=== PATIENT | female | born 1930 | race Caucasian/White ===

== ENCOUNTER 2018-10-12 20:55 | Inpatient (IN) | payer MEDICARE, OTHER ==
[2018-10-12 20:55] VITALS: BMI 24.0
--- NOTE | 2018-10-12 21:10 | ED PDOC ---
Arrival/HPI - General Time Seen by Provider: 10/12/18 20:56 Historian: Family, EMS EM Caveat: Altered Mental Status - Critical Care Critical Care Minutes: 30 minutes - History of Present Illness Narrative History of Present Illness (Text): 10/12/18 21:00 88 year old female, whose past medical history includes dementia, degenerative joint disease, Hypertension, Diabetes, and Hyperlipidemia, presents to the emergency department via EMS for evaluation of poor responsiveness at home. As per collateral history obtained by paramedics, patient was noted to be noncommunicative, generalized weakness with a noted gaze preference. Patient with a blood sugar in the field of 50 and was administered dextrose. Patient however is awake, but poorly responsive and noncommunicative. HPI and JOAQUÍN sage vivi due to patient's altered mental status. PMD: Dr. Nader Aguilar Past Medical History - Provider Review Nursing Documentation Reviewed: Yes - Infectious Disease Hx of Infectious Diseases: None - Cardiac Hx Cardiac Disorders: Yes Hx Hypertension: Yes - Pulmonary Hx Respiratory Disorders: No - Neurological Hx Neurological Disorder: Yes Hx Dementia: Yes - HEENT Hx HEENT Disorder: Yes Hx Cataracts: Yes - Renal Hx Renal Disorder: No - Endocrine/Metabolic Hx Diabetes Mellitus Type 2: Yes (niddm) - Hematological/Oncological Hx Blood Disorders: Yes Hx Shingles: Yes (2012) - Integumentary Hx Dermatological Disorder: No - Musculoskeletal/Rheumatological Hx Falls: Yes - Gastrointestinal Hx Gastrointestinal Disorders: Yes - Genitourinary/Gynecological Hx Genitourinary Disorders: Yes Hx Incontinence: Yes Hx Urinary Tract Infection: Yes - Psychiatric Hx Psychophysiologic Disorder: Yes Hx Anxiety: Yes Hx Depression: Yes Hx Substance Use: No - Surgical History Hx Cholecystectomy: Yes Hx Hysterectomy: Yes Other/Comment: PIGTAIL STENT - Anesthesia Hx Anesthesia: Yes Hx Anesthesia Reactions: No Hx Malignant Hyperthermia: No Family/Social History - Physician Review Nursing Documentation Reviewed: Yes Family/Social History: No Known Family HX Smoking Status: Unknown If Ever Smoked Hx Alcohol Use: No Hx Substance Use: No Allergies/Home Meds Allergies/Adverse Reactions: Allergies Penicillins Allergy (Verified 02/06/16 23:41) SWELLING Review of Systems - Physician Review All systems were reviewed & negative as marked: Yes - Review of Systems Systems not reviewed;Unavailable: Altered Mental Status Physical Exam Vital Signs Reviewed: Yes Temperature: Afebrile Blood Pressure: Hypotensive Pulse: Tachycardic Respiratory Rate: Normal Appearance: Positive for: Well-Appearing, Non-Toxic Pain Distress: None Mental Status: Positive for: other (awake, but noncommunicative) - Systems Exam Head: Present: Atraumatic, Normocephalic Pupils: Present: PERRL Extroacular Muscles: Present: Gaze Palsy Conjunctiva: Present: Normal Ears: Present: NORMAL TM Mouth: Present: Moist Mucous Membranes Pharnyx: Present: Normal Neck: Present: Normal Range of Motion Respiratory/Chest: Present: Clear to Auscultation, Good Air Exchange. No: Respiratory Distress, Accessory Muscle Use Cardiovascular: Present: Tachycardic. No: Murmurs Abdomen: No: Tenderness, Distention, Peritoneal Signs Back: Present: Normal Inspection Upper Extremity: Present: Normal Inspection. No: Cyanosis, Edema Lower Extremity: Present: Normal Inspection. No: Edema Neurological: Present: Other ((+)slight right gaze preference, right-sided and left-sided paresis, positive gag) Skin: Present: Warm, Dry, Normal Color. No: Rashes Psychiatric: Present: Alert (awake and noncommunicative) Medical Decision Making ED Course and Treatment: 10/12/18 21:00 Impression: 88 year old female presents for evaluation for poor responsiveness at home. As per civil engineering professor, patient noted to be noncommunicative, generalized weakness, and noted right gaze preference. PE shows patient to be awake and noncommunicative, with slight right eye gaze preference, right-sided and left-sided paresis, and positive gag. Plan: -- Labs -- ABG, VBG -- Head CT (code stroke) -- EKG -- Stroke Team consult -- Chest X-ray -- IV Fluids -- Blood Culture, Urine Culture -- Urinalysis -- Reassess and disposition Prior Visits: Notes and results from previous visits were reviewed. Progress Notes: 10/12/18 21:03 Code stroke called. EXAM: CT Head without Intravenous Contrast. Electronically signed on Oct 12, 2018 9:20:06 PM EST by: Boo Hook M.D. IMPRESSION: 1. There is generalized parenchymal atrophy noted as demonstrated by symmetrical dilatation of ventricles and sulci. 2. Chronic periventricular and subcortical microvascular disease is seen. 3. No acute intracranial pathology. 10/12/18 21:25 Called placed to Neurologist Dr. Gayle 10/12/18 21:26 CXR Impression: As read by me, no acute process. 10/12/18 21:32 EKG shows Sinus tachycardia at 125 BPM with septal infarct, anterior lateral inferior ST/T compressions. Interpreted by me. 10/12/18 21:38 Case discussed with director of medical education and Dr. Parrish Toure for ICU consult. 10/12/18 21:43 Labs reviewed Lactate 5.7 and patient hypotensive. Code Sepsis called. 10/12/18 21:[address] Gayle. Patient is not a candidate for TPA. Symptoms now consist with sepsis. 10/12/18 22:[address] Naedr Aguilar who is aware and agrees with the plan. Accepts patient into his service. Request Dr. Sy for consult. 10/12/18 23:00 Patient was evaluated by the resident and senior materials analyst in the ER. - Critical Care Critical Care Minutes: 30 minutes - Lab Interpretations I have reviewed the lab results: Yes - RAD Interpretation Interpretative Dancer: ED Physician, Radiologist - EKG Interpretation Interpreted by ED Physician: Yes Type: 12 lead EKG NIHSS Scale ([place]) Time Performed: 21:00 - How Severe is the Stoke Baseline Level of Consciousness: 1=Drowsy LOC to Questions: 2=Neither correct LOC to commands: 2=Neither correct Best Gaze: 1=Partial gaze palsy Visual: 0=No visual loss Facial: 0=Normal Motor Arm - Left: 1=Drift noted before 10 sec Motor Arm - Right: 1=Drift noted before 10 sec Motor Leg - Left: 1=Drift before 5 sec Motor Leg - Right: 1=Drift before 5 sec Limb Ataxia: 0=Absent Sensory: 0=Normal Best Language: 2=Severe aphasia Dysarthia: 2=Severe, near unintelligible or worse Extinction & Inattention (Neglect): 2=Profound neglect(does not recognize own hand or orients to one side) Score: 16 Risk Level: Mod/Sev Stroke Risk rTPA Inclusion/Exclusion - Refusal of Treatment Patient Refused Treatment: No - Inclusion Criteria for Altepase Patient is 18 years or Older: Yes The Clinical Diagnosis of Ischemic Stroke That is Causing a Potentially Disabling Neurological Deficit: No Time of Onset is Well Established to be Less Than 270 Minute Before Treatment Would Begin: No Risk/Benefit Discussed With Patient/Family Member Present: Yes - Exclusion Criteria for Altepase Uncontrolled Hypertension at Time of Treatment (Systolic BP above 185 or Diastolic BP above 110 mmHg): No Active Internal Bleeding: No Known Bleeding Diathesis Including but Not Limited to: Platelets Below 100,000/mm,PTT Above 40 sec After Heparin Use, Current Use of Oral Anitcoagulant With INR Greater Than 1.7 or PT Greater Than 15 secs: No Evidence of an Intracranial Hemorrhage: No Evidence of Major Acute Infarct With Signs Greater Than 1/3 MCA Territory: No - Warning to TPA With Conditions Following Conditions Weighed Against Anticipated Benefit: Yes Condition: Age Greater Than 75 years - Scribe Statement The provider has reviewed the documentation as recorded by the Romeo Fernandez Provider Scribe Attestation: All medical record entries made by the Romeo were at my direction and personally dictated by me. I have reviewed the chart and agree that the record accurately reflects my personal performance of the history, physical exam, medical decision making, and the department course for this patient. I have also personally directed, reviewed, and agree with the discharge instructions and disposition. Disposition/Present on Arrival - Present on Arrival Any Indicators Present on Arrival: No History of DVT/PE: No History of Uncontrolled Diabetes: No Urinary Catheter: No History Surgical Site Infection Following: None - Disposition Have Diagnosis and Disposition been Completed?: Yes Diagnosis: Sepsis, Hypotension, NSTEMI (non-ST elevated myocardial infarction) Disposition: HOSPITALIZED Disposition Time: 22:20 Condition: GUARDED
[2018-10-12] MEDS ORDERED: Sodium Chloride 0.9% 1,000 ML IV SCH (21:15)
[2018-10-12] MEDS ORDERED: Sodium Chloride 0.9% 1,000 ML IV STA (21:16)
[2018-10-12 21:22] LABS: BASO # 0.01 K/mm3 (0.0-2.0); BASO % 0.1 % (0.0-3.0); GRAN # 12.77 (1.4-6.5); GRAN % 94.7 % (50.0-68.0); LYMPH # 0.4 (1.2-3.4); MEAN CELL VOLUME 96.8 fl (80.0-105.0); MEAN CORPUSCULAR HEMOGLOBIN 32.3 pg (25.0-35.0); MEAN CORPUSCULAR HGB CONC 33.3 g/dl (31.0-37.0); MEAN PLATELET VOLUME 12.1 fl (7.0-11.0); MONO # 0.3 (0.1-0.6); MONO % 2.2 % (1.0-6.0); PLATELET COUNT 87 10^3/uL (120.0-450.0); RBC 3.41 10^6/uL (3.5-6.1); RED CELL DISTRIBUTION WIDTH 14.4 % (11.5-14.5); WHITE BLOOD COUNT 13.5 10^3/uL (4.5-11.0)
[2018-10-12 21:32] LABS: INR 1.54; PARTIAL THROMBOPLASTIN TIME 30.1 Seconds (25.1-36.5); PROTHROMBIN TIME 17.7 SECONDS (9.4-12.5)
[2018-10-12] MEDS ORDERED: Sodium Chloride 0.9% 500 ML IV STA (21:34)
[2018-10-12 21:35] LABS: VENOUS BLOOD GAS BASE EXCESS -3.7 mmol/L (0.0-2.0); VENOUS BLOOD GAS PO2 106 mm/Hg (30-55); VENOUS BLOOD PH 7.39 (7.32-7.43)
[2018-10-12 21:42] LABS: BAND 4 % (0-2); LYMPHOCYTE 4 % (22.0-35.0); METAMYELOCYTE 5 %; MONOCYTE 2 % (1.0-6.0); MYELOCYTE 1 %; NEUTROPHIL 84 % (50.0-70.0)
[2018-10-12 21:43] LABS: ANISOCYTOSIS SLIGHT; PLATELET ESTIMATE LOW (NORMAL)
[2018-10-12 21:48] LABS: ALBUMIN 2.8 g/dL (3.0-4.8); ALT/SGPT 153 U/L (7-56); AST/SGOT 192 U/L (14-36); BLOOD UREA NITROGEN 53 mg/dL (7-21); CALCIUM 8.4 mg/dL (8.4-10.5); GFR NON-AFRICAN AMERICAN 26; HDL CHOLESTEROL 43 mg/dL (29-60)
[2018-10-12 21:49] LABS: ARTERIAL BLOOD GAS HCO3 16.9 mmol/L (21-28); ARTERIAL BLOOD GAS HEMOGLOBIN 9.2 g/dL (11.7-17.4); ARTERIAL BLOOD GAS O2 CAPACITY 12.7 mL/dl (16-24); ARTERIAL BLOOD GAS O2 CONTENT 12.5 ML/dl (15-23); ARTERIAL BLOOD GAS O2 SAT 98.4 % (95-98); ARTERIAL BLOOD GAS PCO2 28 mm/Hg (35-45); ARTERIAL BLOOD GAS PH 7.39 (7.35-7.45); ARTERIAL BLOOD GAS TCO2 17.8 mmol.L (22-28)
[2018-10-12] MEDS ORDERED: Aztreonam 2 Gm in NS 100mL 100 ML IVPB STA (22:08)
[2018-10-12] MEDS ORDERED: Vancomycin 500mg in NS 500 MG/100 ML BAG IVPB STA (22:17)
[2018-10-12] MEDS ORDERED: Insulin Reg-LOW-Coverage SC SCH (22:45)
[2018-10-12] MEDS ORDERED: Dextrose 50% SYRINGE Inj (50 ml) ONE (22:53)
[2018-10-12 22:58] LABS: LDL CHOLESTEROL < 30 mg/dL (0-129)
[2018-10-12 22:59] LABS: TROPONIN I 2.88 ng/mL
[2018-10-12] MEDS ORDERED: Enoxaparin 60 mg Syringe SC STA (23:11)
[2018-10-12 23:24] LABS: URINE APPEARANCE SLIGHT-CLOUDY (CLEAR); URINE BILIRUBIN LARGE (NEGATIVE); URINE BLOOD TRACE-INTACT (NEGATIVE); URINE COLOR DARK YELLOW (YELLOW); URINE GLUCOSE (UA) 100 mg/dL (NEGATIVE); URINE LEUKOCYTE ESTERASE TRACE Leu/uL (NEGATIVE); URINE PROTEIN 30 mg/dL (<30 mg/dL)
[2018-10-12] MEDS ORDERED: NOREPINEPHRINE BIT/0.9 % NACL 4 MG/250 ML BAG IV PRN (23:25)
[2018-10-12 23:26] LABS: URINE BACTERIA FEW /hpf; URINE EPITHELIAL CELLS 0 - 2 /hpf (0-5); URINE RBC 0 - 2 /hpf (0-2)
[2018-10-12] MEDS ORDERED: metroNIDAZOLE IV 500 mg/100 ml 500 MG/100 ML BAG IVPB SCH (23:45)
[2018-10-12] MEDS ORDERED: Dextrose 50% SYRINGE Inj (50 ml) IVP STA (23:45)
--- NOTE | 2018-10-12 23:54 | PCM.PROC ---
Procedures Attestation:: I certify that I have explained the specified Operation(s) or Procedure(s), risks, benefits and reasonable alternatives to the Patient and/or other person responsible. The opportunity was given to ask questions and all questions answered - Central Line Placement Right Internal Jugular Aseptic technique was employed throughout the procedure: Hand Hygiene done prior to procedure, Full sterile barriers (mask, hair cover, sterile gown, sterile gloves), Full body sterile drape, Chloraprep Antiseptic: 30 second prep for IJ or SC sites CVP Time Out Performed: Yes Pt. Placed on Pulse Ox Monitor: Yes Central Line Prep: Chlorhexidine-Alcohol Combination Ultrasound Used for Placement: Yes Central Line Lumen Inserted: triple Central Line Length: 16 cm Post Procedure: Sutured in Place, Good Blood Return, All Ports Aspirated, Flushed, Capped, Sterile Dressing Applied Secured by: Suture Post procedure dressing: Clear vapor permeable Post Procedure X-Ray: Yes Patient Tolerated Procedure: Well, No Complications Immediate Complications: None
--- NOTE | 2018-10-13 00:55 | PCM.SEPTIC ---
Sepsis Progress Note - Reassessment Type Date of Evaluation: 10/13/18 Time of Evaluation: 00:54 Reassessment Type: Non-invasive reassessment - Non Invasive Reassessment Were the most recent vital sign reviewed: Yes Vital Sign (Latest): Temp Pulse Resp BP Pulse Ox 99.1 F 115 H 22 46/26 L 97 10/12/18 21:31 10/12/18 22:50 10/12/18 22:50 10/12/18 22:50 10/12/18 22:50 Cardiovascular: Yes: Tachycardia Respiratory: Yes: Crackles, Rhonchi Capillary Refill: Delayed Skin: Pale
[2018-10-13 01:44] VITALS: BP 64/31; PULSE 27; RESP 12; TEMP 96.6; O2SAT 73
--- NOTE | 2018-10-13 02:01 | CP.PCM.HP ---
History of Present Illness - History of Present Illness History of Present Illness: Adal Bradshaw, PGY-1, Internal Medicine History and Physical For Dr. Toure 88 year old female with past medical history of diabetes mellitus type II, history of ascending cholangitis with stent placement, DJD, Alzhiemer's Disease, hyperlipidemia, and multiple TIAs presented to the ER with daughter who provided all of the history. Patient was nonverbal at bedside. As per daughter, patient has been nonverbal for 2 years since being diagnosed with Alzheimer's. Patient started to become less alert 3-4 months ago. As per daughter, up until today, patient was able to walk with an uneven gait. At bedside, patient was minimally responsive, weak, and had a noted gaze preference. Patient had a blood glucose of 50 at home and was administered dextrose by EMS. HPI and ROS were limited due to patient's altered mental status. PMH: as stated above PSH: cholecystectomy, CBD stent in 2016, hysterectomy FMHx: Alzheimer's, CAD, HTN, DM SHx: smoked 50 years ago, denies alcohol use, denies recreational drug use as per family Allergies: penicillin PCP: Dr. Tom Aguilar Medications: losartan, aricept, glipizide, lovastatin, namenda, protonix Pharmacy: [facility] Present on Admission - Present on Admission Any Indicators Present on Admission: No Review of Systems - Review of Systems Systems not reviewed;Unavailable: Altered Mental Status Past Patient History - Infectious Disease Hx of Infectious Diseases: None - Past Social History Smoking Status: Unknown If Ever Smoked - CARDIAC Hx Cardiac Disorders: Yes Hx Hypertension: Yes - PULMONARY Hx Respiratory Disorders: No - NEUROLOGICAL Hx Neurological Disorder: Yes Hx Dementia: Yes - HEENT Hx HEENT Problems: Yes Hx Cataracts: Yes - RENAL Hx Chronic Kidney Disease: No - ENDOCRINE/METABOLIC Hx Diabetes Mellitus Type 2: Yes (niddm) - HEMATOLOGICAL/ONCOLOGICAL Hx Blood Disorders: Yes Hx Shingles: Yes (2012) - INTEGUMENTARY Hx Dermatological Problems: No - MUSCULOSKELETAL/RHEUMATOLOGICAL Hx Falls: Yes - GASTROINTESTINAL Hx Gastrointestinal Disorders: Yes - GENITOURINARY/GYNECOLOGICAL Hx Genitourinary Disorders: Yes Hx Incontinence: Yes Hx Urinary Tract Infection: Yes - PSYCHIATRIC Hx Psychophysiologic Disorder: Yes Hx Anxiety: Yes Hx Depression: Yes Hx Substance Use: No - SURGICAL HISTORY Hx Cholecystectomy: Yes Hx Hysterectomy: Yes Other/Comment: PIGTAIL STENT - ANESTHESIA Hx Anesthesia: Yes Hx Anesthesia Reactions: No Hx Malignant Hyperthermia: No Meds Allergies/Adverse Reactions: Allergies Allergy/AdvReac Type Severity Reaction Status Date / Time Penicillins Allergy SWELLING Verified 02/06/16 23:41 Physical Exam - Constitutional Appears: Confused - Head Exam Head Exam: ATRAUMATIC, NORMOCEPHALIC - Eye Exam Eye Exam: PERRL - Neck Exam Neck exam: Positive for: Normal Inspection - Respiratory Exam Respiratory Exam: Clear to Auscultation Bilateral, NORMAL BREATHING PATTERN - Cardiovascular Exam Cardiovascular Exam: REGULAR RHYTHM - GI/Abdominal Exam GI & Abdominal Exam: Soft. absent: Distended, Firm, Guarding, Mass - Extremities Exam Extremities exam: Positive for: full ROM - Neurological Exam Neurological exam: Altered Additional comments: Difficult to evaluate neuro exam due to patient's decreased responsiveness - Skin Skin Exam: Dry, Pallor, Warm Results - Vital Signs Recent Vital Signs: Last Vital Signs Temp 96.6 F L 10/13/18 01:40 Pulse 27 L 10/13/18 01:40 Resp 12 10/13/18 01:31 BP 64/31 L 10/13/18 01:01 Pulse Ox 73 L 10/13/18 01:01 - Labs Result Diagrams: 10/12/18 21:15 10/12/18 21:15 Labs: Laboratory Results - last 24 hr 10/12/18 10/12/18 10/12/18 21:15 21:15 21:15 WBC 13.5 H RBC 3.41 L Hgb 11.0 L Hct 33.0 L MCV 96.8 MCH 32.3 MCHC 33.3 RDW 14.4 Plt Count 87 L MPV 12.1 H Gran % 94.7 H Lymph % (Auto) 3.0 L [place] % (Auto) 2.2 Eos % (Auto) 0.0 L Baso % (Auto) 0.1 Gran # 12.77 H Lymph # (Auto) 0.4 L [place] # (Auto) 0.3 Eos # (Auto) 0.0 Baso # (Auto) 0.01 Neutrophils % (Manual) 84 H Band Neutrophils % 4 H Lymphocytes % (Manual) 4 L Monocytes % (Manual) 2 Metamyelocytes % 5 Myelocytes % 1 Platelet Evaluation Low Anisocytosis (manual) Slight PT 17.7 H INR 1.54 APTT 30.1 pCO2 pO2 HCO3 ABG pH ABG Total CO2 ABG O2 Saturation ABG O2 Content ABG Base Excess ABG Hemoglobin ABG Carboxyhemoglobin POC ABG HHb (Measured) ABG Methemoglobin ABG O2 Capacity VBG pH VBG pCO2 VBG HCO3 VBG Total CO2 VBG O2 Sat (Calc) VBG Base Excess VBG Potassium Hgb O2 Saturation Glucose Lactate FiO2 Sodium 133 Potassium 3.5 L Chloride 99 Carbon Dioxide 24 Anion Gap 14 BUN 53 H Creatinine 1.8 H Est GFR ( Amer) 32 Est GFR (Non-Af Amer) 26 Random Glucose 157 H Calcium 8.4 Total Bilirubin 3.0 H AST 192 H ALT 153 H Alkaline Phosphatase 118 Troponin I 2.88 H* D NT-Pro-B Natriuret Pep Total Protein 5.5 L Albumin 2.8 L Globulin 2.7 Albumin/Globulin Ratio 1.0 L Triglycerides 36 Cholesterol 75 L LDL Cholesterol Direct < 30 HDL Cholesterol 43 Venous Blood Potassium Urine Color Urine Appearance Urine pH Ur Specific [place] Urine Protein Urine Glucose (UA) Urine Ketones Urine Blood Urine Nitrate Urine Bilirubin Urine Urobilinogen Ur Leukocyte Esterase Urine RBC Urine WBC Ur Epithelial Cells Urine Bacteria 10/12/18 10/12/18 10/12/18 21:15 21:21 21:45 WBC RBC Hgb Hct MCV MCH MCHC RDW Plt Count MPV Gran % Lymph % (Auto) [place] % (Auto) Eos % (Auto) Baso % (Auto) Gran # Lymph # (Auto) [place] # (Auto) Eos # (Auto) Baso # (Auto) Neutrophils % (Manual) Band Neutrophils % Lymphocytes % (Manual) Monocytes % (Manual) Metamyelocytes % Myelocytes % Platelet Evaluation Anisocytosis (manual) PT INR APTT pCO2 28 L pO2 106 H 69.0 L HCO3 16.9 L ABG pH 7.39 ABG Total CO2 17.8 L ABG O2 Saturation 98.4 H ABG O2 Content 12.5 L ABG Base Excess -7.1 L ABG Hemoglobin 9.2 L ABG Carboxyhemoglobin 1.8 H POC ABG HHb (Measured) 1.6 ABG Methemoglobin 0.9 ABG O2 Capacity 12.7 L VBG pH 7.39 VBG pCO2 34.0 L VBG HCO3 20.6 L VBG Total CO2 21.6 L VBG O2 Sat (Calc) 99.5 H VBG Base Excess -3.7 L VBG Potassium 3.7 Hgb O2 Saturation 95.7 Glucose 153 H Lactate 5.7 H* FiO2 21.0 100.0 Sodium 132.0 Potassium Chloride 99.0 Carbon Dioxide Anion Gap BUN Creatinine Est GFR ( Amer) Est GFR (Non-Af Amer) Random Glucose Calcium Total Bilirubin AST ALT Alkaline Phosphatase Troponin I NT-Pro-B Natriuret Pep 20228 H Total Protein Albumin Globulin Albumin/Globulin Ratio Triglycerides Cholesterol LDL Cholesterol Direct HDL Cholesterol Venous Blood Potassium 3.7 Urine Color Urine Appearance Urine pH Ur Specific [place] Urine Protein Urine Glucose (UA) Urine Ketones Urine Blood Urine Nitrate Urine Bilirubin Urine Urobilinogen Ur Leukocyte Esterase Urine RBC Urine WBC Ur Epithelial Cells Urine Bacteria 10/12/18 23:05 WBC RBC Hgb Hct MCV MCH MCHC RDW Plt Count MPV Gran % Lymph % (Auto) [place] % (Auto) Eos % (Auto) Baso % (Auto) Gran # Lymph # (Auto) [place] # (Auto) Eos # (Auto) Baso # (Auto) Neutrophils % (Manual) Band Neutrophils % Lymphocytes % (Manual) Monocytes % (Manual) Metamyelocytes % Myelocytes % Platelet Evaluation Anisocytosis (manual) PT INR APTT pCO2 pO2 HCO3 ABG pH ABG Total CO2 ABG O2 Saturation ABG O2 Content ABG Base Excess ABG Hemoglobin ABG Carboxyhemoglobin POC ABG HHb (Measured) ABG Methemoglobin ABG O2 Capacity VBG pH VBG pCO2 VBG HCO3 VBG Total CO2 VBG O2 Sat (Calc) VBG Base Excess VBG Potassium Hgb O2 Saturation Glucose Lactate FiO2 Sodium Potassium Chloride Carbon Dioxide Anion Gap BUN Creatinine Est GFR ( Amer) Est GFR (Non-Af Amer) Random Glucose Calcium Total Bilirubin AST ALT Alkaline Phosphatase Troponin I NT-Pro-B Natriuret Pep Total Protein Albumin Globulin Albumin/Globulin Ratio Triglycerides Cholesterol LDL Cholesterol Direct HDL Cholesterol Venous Blood Potassium Urine Color Dark yellow Urine Appearance Slight-cloudy Urine pH 6.0 Ur Specific [place] 1.025 Urine Protein 30 H Urine Glucose (UA) 100 H Urine Ketones Trace H Urine Blood Trace-intact H Urine Nitrate Positive H Urine Bilirubin Large H Urine Urobilinogen 4.0 H Ur Leukocyte Esterase Trace H Urine RBC 0 - 2 Urine WBC 1 - 3 Ur Epithelial Cells 0 - 2 Urine Bacteria Few Assessment & Plan - Assessment and Plan (Free Text) Assessment: 88 year old female with past medical history of diabetes mellitus type II, history of ascending cholangitis with stent placement, DJD, Alzhiemer's Disease, hyperlipidemia, and multiple TIAs presented to the ER with daughter who provided all of the history with weakness and decreased responsiveness. Patient was found to be in septic shock with a blood pressure of 83/70 which reduced to 46/26, so central line was placed for administering levophed and vasopressin. Plan: Septic Shock Secondary likely 2/2 to ascending cholangitis -Patient initially presented with HR of 110, blood pressure of 81/23, and WBC of 13.5. Patient had elevated creatinine from baseline elevated AST/ALT and bilirubin satisfying criteria for septic shock -Due to patient's condition, abdominal CT could not be performed on patient. -Central line was placed for the patient and levophed at 4 mcg/min and vasopressin at 0.03 u/min to elevate blood pressure -1.5L of NS bolus given for septic shock and patient started on NS at 100cc/hr -Vancomycin and aztreonam were started for patient in the emergency department. Flagyl was later added for anaerobic coverage -Patient had increased troponin level at 2.88 likely due to demand ischemia from septic shock. Due to suspicion of possible NSTEMI, patient was started on lovenox 45 mg daily. -Hypoglycemia episodes likely due to septic shock and was treated with D50. History of diabetes mellitus type ii: -Patient started on low sliding scale insulin -Patient initially hypoglycemic on admission and given D50 at that time Hypokalemia -Repleted as necessary DVT prophylaxis: lovenox 45 mg daily GI prophylaxis: protonix 40 mg daily Disposition: Due to patient's critical condition, all other home medications were held at the time. Patient plan discussed with Dr. Toure. - Date & Time Date: 10/13/18 Time: 02:03
--- NOTE | 2018-10-13 02:21 | CP.PCM.DIS ---
Provider - Provider Date of Admission: 10/12/18 22:17 Attending physician: Tom Aguilar JD, MD Primary care physician: Dr. Tom gAuilar Consults: 10/13/18 00:06 Cardiology Consult Routine Comment: Consulting Provider: Alec Holbrook Consulting Physician: Alec Holbrook Reason for Consult: nstemi 10/13/18 00:50 Orthopedic Consult Routine Comment: Consulting Provider: Aquiles Correa Consulting Physician: Aquiles Correa Reason for Consult: displaced ribs 10/12/18 21:06 Stroke Team Consult Stat Comment: Consulting Provider: Neurohospitalist Consulting Physician: NEUROHOSP Neurohospitalist for Consult: Benoit Keller Neurohospitalist for Consult: Amalia Gayle Reason for Consult: ams 10/12/18 22:19 Consult [Physician Consult] Stat Comment: Consulting Provider: Jaxon Sy Consulting Physician: Jaxon Sy Reason for Consult: sepsis Time Spent in preparation of Discharge (in minutes): 60 Diagnosis - Discharge Diagnosis (1) Sepsis Status: Acute (2) NSTEMI (non-ST elevated myocardial infarction) Status: Acute (3) Hypotension Status: Acute Hospital Course - Lab Results Lab Results: Most Recent Lab Values WBC 13.5 10^3/uL (4.5-11.0) H 10/12/18 21:15 RBC 3.41 10^6/uL (3.5-6.1) L 10/12/18 21:15 Hgb 11.0 g/dL (12.0-16.0) L 10/12/18 21:15 Hct 33.0 % (36.0-48.0) L 10/12/18 21:15 MCV 96.8 fl (80.0-105.0) 10/12/18 21:15 MCH 32.3 pg (25.0-35.0) 10/12/18 21:15 MCHC 33.3 g/dl (31.0-37.0) 10/12/18 21:15 RDW 14.4 % (11.5-14.5) 10/12/18 21:15 Plt Count 87 10^3/uL (120.0-450.0) L 10/12/18 21:15 MPV 12.1 fl (7.0-11.0) H 10/12/18 21:15 Gran % 94.7 % (50.0-68.0) H 10/12/18 21:15 Lymph % (Auto) 3.0 % (22.0-35.0) L 10/12/18 21:15 Cloud % (Auto) 2.2 % (1.0-6.0) 10/12/18 21:15 Eos % (Auto) 0.0 % (1.5-5.0) L 10/12/18 21:15 Baso % (Auto) 0.1 % (0.0-3.0) 10/12/18 21:15 Gran # 12.77 (1.4-6.5) H 10/12/18 21:15 Lymph # (Auto) 0.4 (1.2-3.4) L 10/12/18 21:15 Cloud # (Auto) 0.3 (0.1-0.6) 10/12/18 21:15 Eos # (Auto) 0.0 (0.0-0.7) 10/12/18 21:15 Baso # (Auto) 0.01 K/mm3 (0.0-2.0) 10/12/18 21:15 Neutrophils % (Manual) 84 % (50.0-70.0) H 10/12/18 21:15 Band Neutrophils % 4 % (0-2) H 10/12/18 21:15 Lymphocytes % (Manual) 4 % (22.0-35.0) L 10/12/18 21:15 Monocytes % (Manual) 2 % (1.0-6.0) 10/12/18 21:15 Metamyelocytes % 5 % 10/12/18 21:15 Myelocytes % 1 % 10/12/18 21:15 Platelet Evaluation Low (NORMAL) 10/12/18 21:15 Anisocytosis (manual) Slight 10/12/18 21:15 PT 17.7 SECONDS (9.4-12.5) H 10/12/18 21:15 INR 1.54 10/12/18 21:15 APTT 30.1 Seconds (25.1-36.5) 10/12/18 21:15 pCO2 28 mm/Hg (35-45) L 10/12/18 21:45 pO2 69.0 mm/Hg (80-100) L 10/12/18 21:45 HCO3 16.9 mmol/L (21-28) L 10/12/18 21:45 ABG pH 7.39 (7.35-7.45) 10/12/18 21:45 ABG Total CO2 17.8 mmol.L (22-28) L 10/12/18 21:45 ABG O2 Saturation 98.4 % (95-98) H 10/12/18 21:45 ABG O2 Content 12.5 ML/dl (15-23) L 10/12/18 21:45 ABG Base Excess -7.1 mmol/L (-2.0-3.0) L 10/12/18 21:45 ABG Hemoglobin 9.2 g/dL (11.7-17.4) L 10/12/18 21:45 ABG Carboxyhemoglobin 1.8 % (0.5-1.5) H 10/12/18 21:45 POC ABG HHb (Measured) 1.6 % (0-5) 10/12/18 21:45 ABG Methemoglobin 0.9 % (0.0-3.0) 10/12/18 21:45 ABG O2 Capacity 12.7 mL/dl (16-24) L 10/12/18 21:45 VBG pH 7.39 (7.32-7.43) 10/12/18 21:21 VBG pCO2 34.0 (40-60) L 10/12/18 21:21 VBG HCO3 20.6 mmol/l (21-28) L 10/12/18 21:21 VBG Total CO2 21.6 mmol.L (22-28) L 10/12/18 21:21 VBG O2 Sat (Calc) 99.5 % (40-65) H 10/12/18 21:21 VBG Base Excess -3.7 mmol/L (0.0-2.0) L 10/12/18 21:21 VBG Potassium 3.7 mmol/L (3.6-5.2) 10/12/18 21:21 Hgb O2 Saturation 95.7 % (95.0-98.0) 10/12/18 21:45 Sodium 132.0 mmol/L (132-148) 10/12/18 21:21 Chloride 99.0 mmol/L (98-107) 10/12/18 21:21 Glucose 153 mg/dl (65-105) H 10/12/18 21:21 Lactate 5.7 mmol/L (0.7-2.1) H* 10/12/18 21:21 FiO2 100.0 % 10/12/18 21:45 Sodium 133 mmol/L (132-148) 10/12/18 21:15 Potassium 3.5 mmol/L (3.6-5.0) L 10/12/18 21:15 Chloride 99 mmol/L (98-107) 10/12/18 21:15 Carbon Dioxide 24 mmol/L (21-33) 10/12/18 21:15 Anion Gap 14 (10-20) 10/12/18 21:15 BUN 53 mg/dL (7-21) H 10/12/18 21:15 Creatinine 1.8 mg/dl (0.7-1.2) H 10/12/18 21:15 Est GFR ( Amer) 32 10/12/18 21:15 Est GFR (Non-Af Amer) 26 10/12/18 21:15 Random Glucose 157 mg/dL (70-110) H 10/12/18 21:15 Calcium 8.4 mg/dL (8.4-10.5) 10/12/18 21:15 Total Bilirubin 3.0 mg/dL (0.2-1.3) H 10/12/18 21:15 AST 192 U/L (14-36) H 10/12/18 21:15 ALT 153 U/L (7-56) H 10/12/18 21:15 Alkaline Phosphatase 118 U/L (38-126) 10/12/18 21:15 Troponin I 2.88 ng/mL H* D 10/12/18 21:15 NT-Pro-B Natriuret Pep 18316 pg/mL (0-450) H 10/12/18 21:15 Total Protein 5.5 g/dL (5.8-8.3) L 10/12/18 21:15 Albumin 2.8 g/dL (3.0-4.8) L 10/12/18 21:15 Globulin 2.7 gm/dL 10/12/18 21:15 Albumin/Globulin Ratio 1.0 (1.1-1.8) L 10/12/18 21:15 Triglycerides 36 mg/dL (35-160) 10/12/18 21:15 Cholesterol 75 mg/dL (130-200) L 10/12/18 21:15 LDL Cholesterol Direct < 30 mg/dL (0-129) 10/12/18 21:15 HDL Cholesterol 43 mg/dL (29-60) 10/12/18 21:15 Venous Blood Potassium 3.7 mmol/L (3.6-5.2) 10/12/18 21:21 Urine Color Dark yellow (YELLOW) 10/12/18 23:05 Urine Appearance Slight-cloudy (CLEAR) 10/12/18 23:05 Urine pH 6.0 (4.7-8.0) 10/12/18 23:05 Ur Specific [place] 1.025 (1.005-1.035) 10/12/18 23:05 Urine Protein 30 mg/dL (<30 mg/dL) H 10/12/18 23:05 Urine Glucose (UA) 100 mg/dL (NEGATIVE) H 10/12/18 23:05 Urine Ketones Trace mg/dL (NEGATIVE) H 10/12/18 23:05 Urine Blood Trace-intact (NEGATIVE) H 10/12/18 23:05 Urine Nitrate Positive (NEGATIVE) H 10/12/18 23:05 Urine Bilirubin Large (NEGATIVE) H 10/12/18 23:05 Urine Urobilinogen 4.0 E.U./dL (<1 E.U./dL) H 10/12/18 23:05 Ur Leukocyte Esterase Trace Leydi/uL (NEGATIVE) H 10/12/18 23:05 Urine RBC 0 - 2 /hpf (0-2) 10/12/18 23:05 Urine WBC 1 - 3 /hpf (0-6) 10/12/18 23:05 Ur Epithelial Cells 0 - 2 /hpf (0-5) 10/12/18 23:05 Urine Bacteria Few /hpf (NONE) 10/12/18 23:05 - Hospital Course Hospital Course: Adal Bradshaw, PGY-1, Internal Medicine Discharge Summary For Dr. Toure 88 year old female with past medical history of diabetes mellitus type II, history of ascending cholangitis with stent placement, DJD, Alzhiemer's Disease, hyperlipidemia, and multiple TIAs presented to the ER with daughter who provided all of the history. Patient was nonverbal at bedside. As per daughter, patient has been nonverbal for 2 years since being diagnosed with Alzheimer's. Patient started to become less alert 3-4 months ago. As per daughter, up until today, patient was able to walk with an uneven gait. At bedside, patient was minimally responsive, weak, and had a noted gaze preference. Patient had a blood glucose of 50 at home and was administered dextrose by EMS. HPI and ROS were limited due to patient's altered mental status. Due to patient's condition, abdominal CT could not be performed on patient. 1.5L of NS bolus given for septic shock and patient started on NS at 100cc/hr. Vancomycin and aztreonam were started for patient in the emergency department. Flagyl was later added for anaerobic coverage. Patient had increased troponin level at 2.88 likely due to demand ischemia from septic shock. Due to suspicion of possible NSTEMI, patient was started on lovenox 45 mg daily. Due to patient's septic shock with blood pressure of 83/70 which reduced to 46/26, central line was placed for administering levophed and vasopressin and patient was transferred to the ICU. Patient's blood pressure initially improved to 81/42 but deteriorated once ag ain. Nurse called resident, , to come evaluate patient due to periods of apnea on the monitor. On examination, patient did not have any pupillary reflexes, babinski reflex, gag reflex, heart beat, or pulse. Patient was subsequently pronounced at 1:40 on 10/13/2018. - Date & Time of H&P Date of H&P: 10/13/18 Time of H&P: 02:19 Discharge Exam - Head Exam Head Exam: ATRAUMATIC, NORMOCEPHALIC - Eye Exam Pupil Exam: Fixed - Respiratory Exam Additional comments: no breath sounds - Cardiovascular Exam Additional comments: no rate or rhythm. pulseless - GI/Abdominal Exam GI & Abdominal Exam: Unremarkable - Extremities Exam Additional comments: 0/5 strength exam, - Neurological Exam Additional comments: AAOx0, CNII-XII not intact, no reflexes present - Skin Skin Exam: Dry, Pallor Discharge Plan - Follow Up Plan Condition: GUARDED Disposition: HOME/ ROUTINE Instructions: Myocardial Infarction (DC), Myocardial Infarction (GEN)
--- NOTE | 2018-10-13 02:44 | CP.PCM.PRO ---
Pronouncement of Note - Clinical Findings Physical Exam: No Response Verbal/Painful Stimuli, Absent Peripheral Puls es{Carotid & Femoral}, Absent Heart & Breath Sounds, No Pupillary Light Reflex, No Corneal Reflex, Pupils Fixed & Dilated, Absence of Vital Signs - Pronouncement Time Time of Pronouncement of : 01:40 - Notifications Pronouncement Notifications: Family Notified Packing Line Operator Notified: Yes - Autopsy Autopsy Requested: No - [place] [id number]
[2018-10-13] MEDS ORDERED: Aztreonam 2 Gm in NS 100mL 100 ML IVPB SCH (06:00)
[2018-10-13] MEDS ORDERED: Enoxaparin 60 mg Syringe SC SCH (10:00)
--- NOTE | 2018-10-13 10:13 | CT ---
Date of service: 10/12/2018 PROCEDURE: CT HEAD WITHOUT CONTRAST. HISTORY: Code Stroke COMPARISON: CT head dated 02/06/2016 TECHNIQUE: Axial computed tomography images were obtained through the head/brain without intravenous contrast. Radiation dose: Total exam DLP = 973.3 mGy-cm. This CT exam was performed using one or more of the following dose reduction techniques: Automated exposure control, adjustment of the mA and/or kV according to patient size, and/or use of iterative reconstruction technique. FINDINGS: HEMORRHAGE: No intracranial hemorrhage. BRAIN: No mass effect or edema. Atrophy. Chronic microvascular ischemic changes. VENTRICLES: Unremarkable. No hydrocephalus. CALVARIUM: Unremarkable. PARANASAL SINUSES: Unremarkable as visualized. No significant inflammatory changes. MASTOID AIR CELLS: Unremarkable as visualized. No inflammatory changes. OTHER FINDINGS: None. IMPRESSION: No acute intracranial pathology. Age-related changes. No significant interval change.
--- NOTE | 2018-10-13 10:13 | RAD ---
Date of service: 10/12/2018 HISTORY: Code Stroke COMPARISON: Chest radiograph dated 02/09/2016 FINDINGS: LUNGS: Stable chronic prominence of the bilateral interstitial markings with superimposed pulmonary vascular congestion not excluded. No focal consolidation. PLEURA: No significant pleural effusion identified, no pneumothorax apparent. CARDIOVASCULAR: Aortic atherosclerotic calcifications. Cardiomediastinal silhouette stably enlarged OSSEOUS STRUCTURES: Unchanged. VISUALIZED UPPER ABDOMEN: Normal. OTHER FINDINGS: None. IMPRESSION: Stable chronic prominence of the bilateral interstitial markings with superimposed pulmonary vascular congestion not excluded. No focal consolidation or pleural effusion
--- NOTE | 2018-10-13 10:16 | RAD ---
Date of service: 10/12/2018 HISTORY: central line placement COMPARISON: Chest radiograph performed approximately 2 hours prior. FINDINGS: LUNGS: Stable chronic prominence of the bilateral interstitial markings with superimposed pulmonary vascular congestion not excluded. No focal consolidation. PLEURA: No significant pleural effusion identified, no pneumothorax apparent. CARDIOVASCULAR: Aortic atherosclerotic calcifications. Cardiomediastinal silhouette unchanged. OSSEOUS STRUCTURES: Unchanged. VISUALIZED UPPER ABDOMEN: Normal. OTHER FINDINGS: New right internal jugular access central venous catheter with tip in superior vena cava.. IMPRESSION: New right internal jugular access central venous catheter in satisfactory position. No appreciable pneumothorax. Stable chronic prominence of the bilateral interstitial markings with superimposed pulmonary vascular congestion not excluded. No focal consolidation or pleural effusion.
--- NOTE | 2018-10-13 10:37 | CARD ---
APPROVED REPORT Date of service: 10/12/2018 EKG Measurement Heart [id number] <Conclusion> Sinus tachycardia with frequent premature supraventricular complexes Septal infarct, age undetermined Marked ST abnormality, possible inferior subendocardial injury Marked ST abnormality, possible anterior subendocardial injury Abnormal ECG
== END 2018-10-13 01:40 | DRG 871 ==
LOC: ED 20:55 → ERH 22:17 → CCU 10-13 00:09
PROVIDERS: ADMIT Internal Medicine; ATTEND Internal Medicine
PROC: 05HM33Z Insertion of Infusion Device into Right Internal Jugular Vein, Percutaneous Approach (ICD-10-PCS; principal; 2018-10-12)
PROC: B543ZZA Ultrasonography of Right Jugular Veins, Guidance (ICD-10-PCS; 2018-10-12)
DX: A41.89 Other specified sepsis (principal); I21.4 Non-ST elevation (NSTEMI) myocardial infarction; R65.21 Severe sepsis with septic shock; R47.01 Aphasia; E11.9 Type 2 diabetes mellitus without complications; E78.5 Hyperlipidemia, unspecified; G30.9 Alzheimer's disease, unspecified; F02.80 Dementia in other diseases classified elsewhere, unspecified severity, without behavioral disturbance, psychotic disturbance, mood disturbance, and anxiety; H51.0 Palsy (spasm) of conjugate gaze; I10 Essential (primary) hypertension; Z86.73 Personal history of transient ischemic attack (TIA), and cerebral infarction without residual deficits; Z87.440 Personal history of urinary (tract) infections; Z90.49 Acquired absence of other specified parts of digestive tract; Z90.710 Acquired absence of both cervix and uterus; Z82.0 Family history of epilepsy and other diseases of the nervous system; Z82.49 Family history of ischemic heart disease and other diseases of the circulatory system; Z83.3 Family history of diabetes mellitus; B96.1 Klebsiella pneumoniae [K. pneumoniae] as the cause of diseases classified elsewhere; Z88.0 Allergy status to penicillin; E87.6 Hypokalemia